=== PATIENT | male | born 1995 | race African-American/Black ===

== ENCOUNTER 2016-10-10 22:12 | Emergency (ER) | payer OTHER ==
--- NOTE | ~2016-10-10 | CR181 ---
[facility] A Service of [facility] & [facility] RADIOLOGY TEXT RESULTS PATIENT: BETH OTTO LOCATION: CFTX : 95 UNIT #: [id number] AGE: [address]: Zack Bates SEX: M ORDER DR: [id number] [facility] [address] [place], [place] [address] [id number] E MR#: [id number] Acc #: [id number] NAME: BETH OTTO : 1995 SEX: M STUDY DATE/TIME: 10/10/2016 21:58 UNIT: [facility] ROOM: STUDY DESCRIPTION: CR Lumbar Spine 2 or 3 Views Attending Physician: Zack Bates P.A.-C. Ordering Physician: Zack Bates P.A.-C. Primary Care Physician: No Primary Care Physician MEDICAL IMAGING REPORT This report is preliminary unless electronic signature is present EXAM Lumbar spine 3 views HISTORY Low back pain after fall today. FINDINGS 3 views of the lumbar spine demonstrate minimal left lumbar curve. No fracture, disc space narrowing, or lumbar subluxation. No abnormal sclerosis. IMPRESSION Negative. Dictated by... Major Galloway M.D. THIS IS AN ELECTRONICALLY VERIFIED REPORT Major Galloway M.D. at 10/12/2016 12:30 PM DFMati/minor TD: 10/12/2016 07:19 JOB #: [id number] MEDICAL IMAGING REPORT COPY
[2016-10-10 21:51] LABS: URINE SOURCE CLEAN CATCH
[2016-10-10 21:57] LABS: URINE APPEARANCE CLEAR; URINE BILIRUBIN NEG (NEG); URINE BLOOD 1+ (NEG); URINE COLOR YELLOW; URINE GLUCOSE NEG (NEG); URINE KETONE NEG (NEG); URINE LEUKOCYTE ESTERASE 2+ (NEG); URINE NITRATE NEG (NEG); URINE PH 7.5 (5-8); URINE PROTEIN NEG (NEG); URINE SPECIFIC GRAVITY 1.017 (1.003-1.035); URINE UROBILINOGEN 0.2 MG/DL (NEG)
[2016-10-10 21:59] LABS: CULTURE INDICATED? YES; URINE BACTERIA AUWI NEG (NEGATIVE); URINE SQUAMOUS EPITHELIAL CELL NONE SEEN /[HPF]; UWBCS1 AUWI 100-200 (0-5)
[2016-10-15 10:58] LABS: CHLAMYDIA TRACH Not Detected (Not Detected); N GONOR Not Detected (Not Detected)
== END 2016-10-10 23:00 | disposition home or self-care (01) ==
LOC: CFTX 22:12
DX: N34.2 Other urethritis (principal); M54.5 Low back pain
CPT/HCPCS: 72100; 81003; 87086; 87491; 87591; 96372; 99283; J0696